=== PATIENT | male | born 1940 | race Caucasian/White ===

== ENCOUNTER → 2024-08-17 09:50 | Outpatient (CLI) | payer OTHER, SELFPAY ==
--- NOTE | 2024-08-17 09:55 | DI.NM.S_ITS ---
PROCEDURE: NM HAILE PERF SPECT REST & STR Rest and exercise myocardial perfusion SPECT with gated imaging and ejection fraction RADIOPHARMACEUTICAL: 12.4 mCi Tc-99m sestamibi IV at rest and 25.2 mCi Tc-99m sestamibi IV at peak exercise. A [id number] was performed. INDICATIONS: BRADYCARDIA,CHEST PAIN TECHNIQUE: Radiopharmaceutical was injected at peak stress test, and also at rest. SPECT images were obtained. SPECT myocardial perfusion images were displayed in short axis, horizontal long axis, and vertical long axis views. Gated images were reviewed using Kudo software. COMPARISON: None. CARDIAC STRESS: A standard Markus treadmill exercise tolerance test was performed by the patient under the supervision of an attending staff. The patient exercised for 9 minutes and 9 seconds; 10.1 METS; functional aerobic impairment (SUMI) is -83%. Hemodynamic data: There is normal blood pressure and heart rate response to exercise stress. Patient achieved 97% of maximum predicted heart rate at peak exercise. Peak blood pressure 180/92. Symptoms: Patient denied chest pain during exercise. EKG: No diagnostic EKG changes of ischemia; < 1mm horizontal ST segment depressions leads II, III, aVF, V5 and V6 in early recovery; no ectopy. FINDINGS: Raw data: There is good myocardial labeling by radiotracer. No significant motion artifacts. Xbex-qk-yzoic ratio is 0.26 (normal is less than 0.38 for sestamibi tracer, and less than 0.50 for thallium tracer). Left ventricle function: Gated images demonstrate normal left ventricle wall thickening. No segmental wall motion abnormality. No transient ischemic dilation; TID is 1.02 (normal less than 1.3). The left ventricle resting end-diastolic volume is 90 mL. Left ventricle stress ejection fraction is 74%; normal values are above 45%. Myocardial perfusion: There is normal distribution of activity in the left and right ventricular myocardium. No fixed or reversible perfusion defects. IMPRESSION: Low risk study. No evidence of exercise-induced ischemia or scar on SPECT imaging. Nondiagnostic exercise ECG with <[address] segment depressions early in recovery. Normal hemodynamic response. Excellent exercise capacity. Dictated by: Sweta Serra D.O. on 08/17/2024 at 16:59 Approved by: Sweta Serra D.O. on 08/17/2024 at 17:05
== END ==
LOC: NUCM 09:54
PROVIDERS: Referring Provider Internal Medicine Cardiovascular Disease; Visit Provider Internal Medicine Cardiovascular Disease
DX: R07.89 Other chest pain (principal); R00.1 Bradycardia, unspecified
CPT/HCPCS: 78452; 93017; A9502

== ENCOUNTER → 2024-12-16 11:21 | Outpatient (CLI) | payer OTHER, SELFPAY | PROVIDERS: PCP Nurse Practitioner; Referring Provider Internal Medicine Cardiovascular Disease; Visit Provider Internal Medicine Cardiovascular Disease | DX: R00.1 Bradycardia, unspecified (principal); R06.09 Other forms of dyspnea; R94.2 Abnormal results of pulmonary function studies | CPT/HCPCS: 94060; 94726; 94729 ==

== ENCOUNTER → 2025-01-08 08:45 | Outpatient (CLI) | payer OTHER, SELFPAY ==
--- NOTE | 2025-01-08 08:47 | DI.CT.S_ITS ---
PROCEDURE: CT CHEST HIGH RESOLUTION INDICATIONS: DYSPNEA ON EXERTION TECHNIQUE: Noncontrast 1.0 and 5.0 mm thick contiguous axial sections from the pulmonary apex to the posterior costophrenic angles, with 7 mm thick coronal and sagittal MIP reformats. 1 mm thick dynamic expiratory images acquired through the upper, mid, and lower lungs. 1.0 mm thick axial sections acquired from the flora to the posterior costophrenic angles in the prone end-inspiration position. For radiation dose reduction, the following was used: automated exposure control, adjustment of mA and/or kV according to patient size. COMPARISON: None. FINDINGS: Image quality: Diagnostic. Lower Neck: No enlarged lymph nodes. Thyroid: There is a 1 cm nodule in the left thyroid lobe, statistically most likely benign. Axillae: No enlarged lymph nodes. Chest Wall: Unremarkable. Bones: Unremarkable. Lungs and Pleura: No pneumothorax or pleural effusions. There is a elongated parenchymal density in the right middle lobe anteriorly measuring 2.1 cm in length and 6 mm in diameter. There is mild parenchymal scarring in the medial right lower lobe, probably due to adjacent thoracic osteophytes. No gas trapping. Heart: Heart size is normal. No pericardial effusion. Thoracic Vessels: The aorta and pulmonary arteries demonstrate normal size. Mediastinum and Khushi: No enlarged lymph nodes. Esophagus: No wall thickening. No hiatal hernia. Upper Abdomen: Visualized upper abdomen solid organs and bowel loops appear normal. IMPRESSION: 1. No convincing signs of diffuse lung disease seen at this time. 2. Elongated parenchymal density in the right middle lobe, most likely benign, can be reassessed with follow-up CT in 1 year. Dictated by: Michele Montero M.D. on 01/09/2025 at 17:23 Approved by: Michele Montero M.D. on 01/09/2025 at 17:31
== END ==
PROVIDERS: PCP Nurse Practitioner; Referring Provider Internal Medicine Cardiovascular Disease; Visit Provider Internal Medicine Cardiovascular Disease
DX: R06.09 Other forms of dyspnea (principal); R00.1 Bradycardia, unspecified; E04.1 Nontoxic single thyroid nodule
CPT/HCPCS: 71250